=== PATIENT | female | born 1985 | race Caucasian/White ===

== ENCOUNTER 2017-08-21 17:58 | Emergency (ER) | payer MEDICAID ==
[~2017-08-21] VITALS: Ht 170.2 cm; Wt 112.0 kg
[~2017-08-21 17:58] MED LIST: LOPE2TAB3 PO; ZOFR4TAB3 SL
[2017-08-21 18:04] VITALS: BP 143/92; PULSE 107; RESP 16; TEMP 99.9; O2SAT 98
[2017-08-21] MEDS ORDERED: PRED15UDC PO (19:57)
[2017-08-21] MEDS ORDERED: AMOX400S3 PO (19:57)
[2017-08-21] MEDS ORDERED: MAGICADU2 SWISH-SWAL (19:57)
--- NOTE | 2017-08-21 20:01 | PD ---
HPI Chief Complaint: ENT Complaint Time Seen by Provider: 19:46 Travel History International Travel<30 days: No Contact w/Intl Traveler<30days: No Traveled to known affect area: No History of Present Illness HPI 32-year-old female that presents to the ED for evaluation of sore throat. Per patient she's been having right ear pain and right throat pain. She's had this for 3 days. Sick contacts at home. Per patient is getting worse. Tonsils are very enlarged and swelling with exudates. States having some chills and sweats. No fever. No urinary or bowel movement issues. No chest pain or shortness of breath. No cough. No other medical issues. Allergy to doxycycline. Pain per patient is 8 out of 10 especially with swallowing. PFSH Past Medical History Cancer: No Cardiovascular Problems: No Diabetes: No Diminished Hearing: No Hepatitis: No Hiatal Hernia: No Hypertension: No Respiratory: No Integumentary: Yes (PSORIASIS) Immunizations Current: No Thyroid Disease: No ?: Not : 1 Para: 1 Tubal Ligation: Yes Past Surgical History Abdominal Surgery: Yes (LIVER BIOPSY) Cardiac Surgery: No Section: Yes Cholecystectomy: Yes (02/17/13) Ear Surgery: No Endocrine Surgery: No Eye Surgery: No Genitourinary Surgery: No Gynecologic Surgery: No Oral Surgery: Yes (WISDOM TEETH) Pacemaker: No Thoracic Surgery: No Other Surgery: Yes (SKIN BIOPSY.WISDOM TEETH REMOVED.) Social History Alcohol Use: No Tobacco Use: No (1 ppd) Substance Use: No Allergies-Medications (Allergen,Severity, Reaction): Coded Allergies: minocycline (Unverified Allergy, Intermediate, HIVES, 08/21/17) Reported Meds & Prescriptions Reported Meds & Active Scripts Active Amoxicillin Liq (Amoxicillin) 400 Mg/5 Ml Susp 500 Mg PO TID 10 Days Prednisolone Liq (Prednisolone) 15 Mg/5 Ml Soln 15 Mg PO DAILY 5 Days Magic Mouthwash Adult Liq (Multi-Ingredient Mouthwash/Gargle) 120 Ml Susp 5 Ml SWISH-SWAL ACHS Each 5mL contains: Nystatin 200,000units, Diphenhydramine 4.25mg, Viscous Lidocaine 10mg, Child syrup 0.8 mL Loperamide (Loperamide HCl) 2 Mg Tab 2 Mg PO DIRECTED PRN One tablet after each loose stool. Not to exceed 8 tablets per day. Zofran Odt (Ondansetron Odt) 4 Mg Tab 4 Mg SL Q8HR PRN May substitute non-ODT form. Review of Systems Except as stated in HPI: all other systems reviewed are Neg Physical Exam Narrative GENERAL: Well-nourished, well-developed patient in no apparent distress. SKIN: Warm and dry. HEAD: Atraumatic. Normocephalic. EYES: Pupils equal and round reactive to light and accommodation. No scleral icterus. No injection or drainage. ENT: No nasal bleeding or discharge. Mucous membranes pink and moist. TMs are clear with no sign of infection or perforation. No mastoid tenderness. Ear canals are intact bilaterally. Nostril mucosa is red and moist with clear mucus noted. No sinus tenderness to palpation noted. Tonsils are enlarged and swollen with exudates bilaterally. No ulvua Deviation. Tongue is midline. Patient has cervical lymphadenopathy on the right side NECK: Trachea midline. No JVD. No meningeal signs noted CARDIOVASCULAR: Regular rate and rhythm. RESPIRATORY: No accessory muscle use. Clear to auscultation. Breath sounds equal bilaterally. GASTROINTESTINAL: Abdomen soft, non-tender, nondistended. Hepatic and splenic margins not palpable. MUSCULOSKELETAL: Extremities without clubbing, cyanosis, or edema. No obvious deformities. NEUROLOGICAL: Awake and alert. No obvious cranial nerve deficits. Motor grossly within normal limits. Five out of 5 muscle strength in the arms and legs. Normal speech. PSYCHIATRIC: Appropriate mood and affect; insight and judgment normal. Data Data Last Documented VS Vital Signs Date Time Temp Pulse Resp B/P (MAP) Pulse Ox O2 Delivery O2 Flow Rate FiO2 08/21/17 18:04 99.9 107 16 143/92 [phone]) 98 Orders Orders Ed Discharge Order (08/21/17 19:58) [facility] Medical Decision Making Medical Screen Exam Complete: Yes Emergency Medical Condition: Yes Medical Record Reviewed: Yes Differential Diagnosis Tonsillitis versus pharyngitis versus strep throat Narrative Course 32-year-old female that presents to the ED for evaluation of sore throat. Patient was properly examined and was found to have signs and symptoms consistent appears to be tonsillitis very likely from strep throat. Patient will be treated for this with amoxicillin, prednisolone, Magic mouthwash. Patient specifically requested liquid medications and this will be given to her. Patient was told to take Motrin for pain. Ice or warm compresses as needed. Follow with PCP. See ED worsening symptoms. Diagnosis Primary Impression: Acute tonsillitis Qualified Codes: J03.90 - Acute tonsillitis, unspecified Patient Instructions: General Instructions Additional Instructions: Motrin and Tylenol for pain and fever. You can use [id number] antihistamine as well as well as Mucinex as needed for runny nose and congestion. Cough drops for cough as needed. Drink plenty of fluids. Follow-up with PCP. See ED for worsening symptoms. Med/Other Pt SpecificInfo: Prescription(s) given Scripts Amoxicillin Liq (Amoxicillin Liq) 400 Mg/5 Ml Susp 500 MG PO TID for Infection for 10 Days, ML 0 Refills Prov: Mario Winchester MD 08/21/17 Prednisolone Liq (Prednisolone Liq) 15 Mg/5 Ml Soln 15 MG PO DAILY for 5 Days, #25 ML 0 Refills Prov: Mario Winchester MD 08/21/17 Caivfprp-Bcufknjxsvlaqor-Ykdahgqvh Liq (Magic Mouthwash Adult Liq) 120 Ml Susp 5 ML SWISH-SWAL ACHS for Mouth sores, #120 ML 0 Refills Each 5mL contains: Nystatin 200,000units, Diphenhydramine 4.25mg, Viscous Lidocaine 10mg, Child syrup 0.8 mL Prov: Mario Winchester MD 08/21/17 Disposition: 01 DISCHARGE HOME Condition: Stable Tonny De La Cruz Aug 21, 2017 20:01
[2017-08-21] MEDS ORDERED: LEVO25TA4 PO (20:04)
== END 2017-08-21 20:12 | disposition home or self-care (01) ==
LOC: PHED 17:58 → PHEFT 20:12
DX: J03.90 Acute tonsillitis, unspecified (principal)
CPT/HCPCS: 99283